=== PATIENT | female | born 1975 | race Caucasian/White ===

== ENCOUNTER 2022-03-08 20:44 | Emergency (ER) | payer OTHER ==
[2022-03-08] MEDS ORDERED: Lidocaine 1% 5 ML VIAL INJECT ONE (22:19)
[2022-03-08] MEDS ORDERED: Bacitracin Oint 1 GM U/D Packet TOP ONE (22:49)
[2022-03-08] MEDS ORDERED: Diphtheria,Pertussis(Acell),Tetanus Vaccine 0.5 ML Syringe IM ONE (22:55)
== END 2022-03-08 23:14 | disposition home or self-care (01) ==
LOC: DL.ED 20:44
DX: S01.312A Laceration without foreign body of left ear, initial encounter (principal); I10 Essential (primary) hypertension; F17.210 Nicotine dependence, cigarettes, uncomplicated; Z23 Encounter for immunization; V49.40XA Driver injured in collision with unspecified motor vehicles in traffic accident, initial encounter; Y92.410 Unspecified street and highway as the place of occurrence of the external cause
CPT/HCPCS: 12011; 70450; 90471; 90715; 99283; 99283-25

== ENCOUNTER 2022-10-25 06:03 | Day surgery (SDC) | payer BC ==
[~2022-10-25 06:03] MED LIST: Dextrose 5%-0.45% NaCl 1,000 ML IV SCH; Sodium Chloride 0.9% 10 ML Syringe FLUSH PRN; Sodium Chloride 0.9% 10 ML Syringe FLUSH SCH
[2022-10-25] MEDS ORDERED: fentaNYL 100 MCG/2 ML SDV IV ONE ×5 (06:04→07:47)
[2022-10-25] MEDS ORDERED: Midazolam 1 MG/ML 2 ML SDV IV ONE ×7 (06:04→07:43)
[2022-10-25] MEDS ORDERED: fentaNYL 100 MCG/2 ML SDV ONE (06:36)
[2022-10-25] MEDS ORDERED: Midazolam 1 MG/ML 2 ML SDV ONE (06:36)
== END 2022-10-25 09:29 | disposition home or self-care (01) ==
LOC: DL.ENDO 06:03
PROVIDERS: ATTEND Internal Medicine Gastroenterology
DX: K57.30 Diverticulosis of large intestine without perforation or abscess without bleeding (principal); E66.09 Other obesity due to excess calories; F41.1 Generalized anxiety disorder; I10 Essential (primary) hypertension; E03.9 Hypothyroidism, unspecified; F17.210 Nicotine dependence, cigarettes, uncomplicated; E11.9 Type 2 diabetes mellitus without complications; Z68.27 Body mass index [BMI] 27.0-27.9, adult; Z98.890 Other specified postprocedural states
CPT/HCPCS: J2250; J3010; J7042